=== PATIENT | female | born 2000 | race Asian ===

== ENCOUNTER 2024-06-23 09:29 | Outpatient (CLI) | payer OTHER, SELFPAY | END 2024-06-23 09:30 | disposition home or self-care (01) | PROVIDERS: Visit Provider Family Medicine | DX: R53.83 Other fatigue (principal); R51.9 Headache, unspecified; Z13.6 Encounter for screening for cardiovascular disorders | CPT/HCPCS: 80053; 80061; 84443 ==

== ENCOUNTER 2024-08-04 11:00 | Outpatient (RCR) | payer OTHER, SELFPAY | END 2024-08-24 09:21 | disposition home or self-care (01) | PROVIDERS: PCP Family Medicine; Visit Provider Family Medicine | DX: R51.9 Headache, unspecified (principal); M54.2 Cervicalgia; G89.29 Other chronic pain; Z74.09 Other reduced mobility; R53.1 Weakness; Z51.89 Encounter for other specified aftercare | CPT/HCPCS: 97110; 97140; 97161 ==